=== PATIENT | female | born 1965 | race Caucasian/White ===

== ENCOUNTER 2017-04-17 16:23 | Outpatient (CLI) | payer MEDICARE, MEDICAID ==
--- NOTE | 2017-04-17 17:21 | RAD ---
THREE VIEWS LEFT SHOULDER: Date: 04-17-17 History: Left rotator cuff disorder, pain. FINDINGS: Post-operative hardware overlies the lower cervical spine and the left humeral head. There is mild mirta int space narrowing and osteophyte formation involving the left AC joint. No widening of the left AC or CC interspace. No displaced fracture or dislocation. IMPRESSION: Post-operative and degenerative changes as above. POS: [facility]
== END 2017-04-17 16:24 | disposition home or self-care (01) ==
LOC: RAD 16:23
PROVIDERS: ATTEND Specialist
DX: M75.102 Unspecified rotator cuff tear or rupture of left shoulder, not specified as traumatic (principal); M19.012 Primary osteoarthritis, left shoulder; Z98.890 Other specified postprocedural states

== ENCOUNTER 2018-03-13 06:50 | Day surgery (SDC) | payer MEDICARE, MEDICAID ==
[2018-03-12 12:53] VITALS: BMI 22.6
[2018-03-13] MEDS ORDERED: Iopamidol-M 200 41% 20 ML VIAL ONE (10:40)
--- NOTE | 2018-03-13 10:42 | RAD ---
LUMBAR MYELOGRAM: Date: 03/13/18 HISTORY: Previous lumbar fusion. Lumbar radiculopathy. COMPARISON: 11/26/15. EXPOSURE: 0.5 minutes. 235.5 mGy*M^2. 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 Redemonstratio n of bilateral transpedicular screws at L4, L5, and S1. There is no perihardware lucency. Hypertrophi c changes of the posterior elements at L3-L4, L4-L5, and L5-S1. No spondylolisthesis or spondylolysis . Successful lumbar puncture for intrathecal contrast administration. A total of 10 mL of Isovue-M 200 contrast was administered intrathecally. No immediate or post procedure complications. TECHNIQUE: Consent obtained to perform a lumbar puncture for intrathecal contrast administration. The patient's back was evaluated. The L2-L3 level was deemed appropriate. Skin was prepped and draped in the steril e fashion. 1% lidocaine, buffered with sodium bicarbonate, was used for local anesthesia. Under fluor oscopic guidance, a 22 gauge spinal needle was advanced into the CSF space. There was prompt flow of clear CSF into the hub of the needle. Via a short tubing catheter, a total of 10 mL Isovue-M 200 cont rast was administered intrathecally. The patient tolerated the procedure well. There were no immediat e or postprocedure complications. IMPRESSION: Successful lumbar myelogram. POS: [facility]
--- NOTE | 2018-03-13 10:44 | CT ---
POST MYELOGRAM LUMBAR SPINE CT: HISTORY: Lumbar radiculopathy. COMPARISON: 05/21/2014 TECHNIQUE: Post myelogram lumbar spine CT is performed in the axial plane. Reformatted images are submitted for interpretation. FINDINGS: There are bilateral transpedicular screws at L4, L5, and S1. No perihardware lucency. Posterior keren ment bone graft material, as well as hypertrophic change of the posterior elements is noted. There i s no evidence of fracture. No spondylolisthesis. No spondylolysis. Symmetric attenuation of the psoas muscles. The visualized alimentary canal and solid organs are unr emarkable. Nonobstructing, 3 mm calculus in the left renal pelvis. The conus medullaris terminates at the mid L1 level. T11-T12/T12-L1: No significant central canal stenosis. The neural foramina are patent. L1-L2: No significant posterior disk abnormality. No significant central canal stenosis. The neura l foramina are patent. L2-L3: Generalized disk bulge, ligamentum flavum thickening, and facet hypertrophy result in mild ce ntral canal stenosis. Mild bilateral neural foraminal narrowing. L3-L4: There continues to be a concentric disk bulge with disk material along the left and right lat eral aspects of the disk space. There is ligamentum flavum thickening and facet hypertrophy. There is resultant mild to moderate central canal stenosis. There is moderate right and mild to moderate l eft foraminal narrowing. Disk material narrows the aforementioned neural foramina. There is also ev idence of right post foraminal disk material, which abuts the right L3 nerve root. L4-L5: Posterior laminectomy defect. No significant central canal stenosis. Bilaterally, the neura l foramina are patent. L5-S1: No significant central canal stenosis or neural foraminal narrowing. IMPRESSION: 1. Redemonstration of degenerative changes of the lumbar spine, as above. 2. There is evidence of narrowing of both neural foramina at L3-L4, secondary to disk material. 3. There is disk material abutting the post foraminal right L3 nerve root, similar to the previous e xamination. 4. There is mild to moderate central canal stenosis at L3-L4. POS: [facility]
== END 2018-03-13 09:35 | disposition home or self-care (01) ==
LOC: RAD 06:50
PROVIDERS: ATTEND Specialist
PROC: B01B1ZZ Fluoroscopy of Spinal Cord using Low Osmolar Contrast (ICD-10-PCS; principal; 2018-03-13)
DX: M51.16 Intervertebral disc disorders with radiculopathy, lumbar region (principal); M48.061 Spinal stenosis, lumbar region without neurogenic claudication; F32.9 Major depressive disorder, single episode, unspecified; G43.909 Migraine, unspecified, not intractable, without status migrainosus; M96.1 Postlaminectomy syndrome, not elsewhere classified; F17.200 Nicotine dependence, unspecified, uncomplicated; Z88.0 Allergy status to penicillin; Z88.1 Allergy status to other antibiotic agents; Z88.2 Allergy status to sulfonamides; Z88.5 Allergy status to narcotic agent; Z88.8 Allergy status to other drugs, medicaments and biological substances; Z91.040 Latex allergy status; Z98.1 Arthrodesis status; Z98.890 Other specified postprocedural states
CPT/HCPCS: 62304; 72131

== ENCOUNTER 2019-01-10 10:02 | Outpatient (CLI) | payer MEDICARE, MEDICAID ==
--- NOTE | 2019-01-10 10:38 | RAD ---
4 views of lumbar spine: 01/10/2019 COMPARISON: 02/10/2014 HISTORY: Postlaminectomy syndrome FINDINGS: Bilateral pedicle screws are present at the L4, L5, and S1 level with vertically oriented i nterlocking rods. The neutral lateral examination demonstrates no significant anterolisthesis or retrolisthesis. On the flexion imaging there is mild anterolisthesis measuring approximately 5 mm at the L3-4 level. This anterolisthesis is not seen on the extension views. Laminectomy changes are noted at the L4 and L5 le vels. There is atherosclerotic calcification of the abdominal aorta. Bilateral laminectomy changes are present at the L4 level. Mild disc space narrowing at L3-4 with mil d anterior osteophyte formation. IMPRESSION: Postoperative and degenerative change within the lumbar spine as detailed above. There is mild anterolisthesis at L3-4 upon flexion.
== END 2019-01-10 10:03 | disposition home or self-care (01) ==
LOC: RAD 10:02
PROVIDERS: ATTEND Specialist
DX: M96.1 Postlaminectomy syndrome, not elsewhere classified (principal); M47.816 Spondylosis without myelopathy or radiculopathy, lumbar region; M43.16 Spondylolisthesis, lumbar region; Z98.890 Other specified postprocedural states
CPT/HCPCS: 72110

== ENCOUNTER 2019-04-09 14:20 | Outpatient (CLI) | payer MEDICARE, MEDICAID ==
--- NOTE | 2019-04-09 15:33 | RAD ---
EXAM: XR Lumbar Spine 2 Or 3 View PROVIDED CLINICAL HISTORY: Low back pain. History of prior lumbar surgery. COMPARISON: 01/10/2019 FINDINGS: Again noted are bipedicular screws and posterior rods transfixing the L4-5 and L5-S1 levels. Laminect reinaldo defects are present at these levels. No hardware complication is seen. As noted on the prior exam, there is mild grade 1 anterolisthesis of L3 on L4 measuring approximately 4 to 5 mm. The degree of anterolisthesis between flexion and extension does not significantly change. However, the anterolisthesis did correct on extension on the prior exam. The vertebral body heights are within nor mal limits. No additional level of subluxation is identified. Vascular calcifications are again seen in the abdominal aorta. IMPRESSION: 1. Postoperative and degenerative changes of the lumbar spine similar to prior exam. 2. Grade 1 anterolisthesis of L3 on L4.
== END 2019-04-09 14:21 | disposition home or self-care (01) ==
LOC: TBSIIMAG 14:20
PROVIDERS: ATTEND Neurological Surgery
DX: M54.5 Low back pain (principal); M47.816 Spondylosis without myelopathy or radiculopathy, lumbar region; M43.16 Spondylolisthesis, lumbar region; Z98.890 Other specified postprocedural states
CPT/HCPCS: 72100

== ENCOUNTER 2019-04-19 09:51 | Outpatient (CLI) | payer MEDICARE, MEDICAID ==
--- NOTE | 2019-04-19 11:06 | CT ---
CT of thelumbar spine without contrast: 04/19/2019 COMPARISON:03/13/2018 HISTORY:Lumbar radiculopathy, back pain, bilateral lower extremity burning TECHNIQUE: Serial axial CT imaging at3 mm from thelower thoracic spine through lower sacrum without c ontrast. Coronal and sagittal reformatted imaging obtained Findings:Evaluation for central canal and/or neural foraminal stenosis is limited on routine CT exam. Bilateral L4 4, L5, and S1 pedicle screws are present with vertically oriented interlocking rods. No evidence for hardware abnormality. Scattered atherosclerotic calcification of the abdominal aorta noted. No anterolisthesis or retrolisthesis within the lumbar spine. T12-L1: No osseous cause of significant central canal or neural foraminal stenosis. L1-2: Disc space narrowing with anterior osteophyte formation. No osseous cause of significant centra l canal or neural foraminal stenosis. L2-3: Mild hypertrophy of the ligamentum flavum. No osseous cause of significant central canal or alize ral foraminal stenosis. L3-4: Stable disc bulge suspected. Stable mild/moderate bilateral neural foraminal stenosis, right gr eater than left. Stable mild central canal stenosis. L4-5: No osseous cause of significant central canal or neural foraminal stenosis. L5-S1: No osseous cause of significant central canal or neural foraminal stenosis. No worrisome lytic or blastic bone lesion. No acute fracture. Impression:Postoperative and degenerative change within the lumbar spine as detailed above.
== END 2019-04-19 09:52 | disposition home or self-care (01) ==
LOC: TBSIIMAG 09:51
PROVIDERS: ATTEND Neurological Surgery
DX: M47.26 Other spondylosis with radiculopathy, lumbar region (principal); Z98.890 Other specified postprocedural states
CPT/HCPCS: 72131

== ENCOUNTER 2019-06-13 13:30 | Outpatient (CLI) | payer MEDICARE, MEDICAID ==
--- NOTE | 2019-06-13 16:48 | MRI ---
MRI LUMBAR SPINE WITH AND WITHOUT CONTRAST: DATE: 06/13/19 HISTORY: 53-year-old female with low back pain, M54.5. COMPARISON: 02/18/14. TECHNIQUE: Multiple sequences obtained in axial and sagittal planes, pre and post IV injection of gadolinium-bas ed contrast agent: 13 mL Multihance. FINDINGS: For the purposes of this report, it will be assumed that there are 5 lumbar-type vertebrae. The vert ebral body heights are maintained. Whereas previously there were bilateral pedicle screws at L4 and L5, there are currently bilateral pe dicle screws at L4, L5, and S1. There is mild bone marrow edema involving the bilateral pedicles and posterior elements at L3, right greater than left. There is postsurgical enhancement of posterior perivertebral spaces. The findings by individual levels are as follows: T12-L1: Minimal disc bulge, but otherwise normal. L1-L2: Minimal disc bulge, but otherwise normal. Conus medullaris terminates at this level. L2-L3: Disc bulge is slightly larger, still mild. Minimal retrolisthesis of L2 on L3, new. No high gr amber disc space narrowing. New finding of mild bilateral neural foraminal stenosis. The disc bulge ind ents the ventral aspect of the thecal sac. No central spinal canal stenosis or high grade thecal sac stenosis. L3-L4: There is a new approximately 1.2 x 1 x 1 cm posterior midline cystic mass occupying 75% or or more of the cross-sectional area and AP dimension of the spinal canal, severely anteriorly displacing and compressing the cauda equina nerve roots. This posterior epidural cystic mass has a fluid level: the nondependent portion follows CSF signal, suggestive of serous fluid. The dependent portion is h ypointense on both T1W and T2W images (blood or calcifications?). It exhibits rim enhancement. Small focal short linear band of enhancement is seen within the cyst. Interval worsening of bilateral facet DJD. Bilateral facet joint effusions present. Interval worsening of now moderate ligamentum flavum t hickening. Whereas previously there was slight retrolisthesis of L3 on L4, there is now a new slight anterolisthesis of L3 on L4. New mild disc space narrowing. Increase in size of diffuse moderate disc bulge. All of these factors, but especially the posterior epidural cyst, causes severe central spina l canal stenosis. New finding of moderate right neural foraminal stenosis and mild to moderate left n eural foraminal stenosis. L4-L5: Mild disc space narrowing. Generous caliber spinal canal and thecal sac. No neural foraminal s tenosis. L5-S1: Disc space maintained. Generous caliber spinal canal and thecal sac. No neural foraminal steno sis. IMPRESSION: 1. New severe central spinal canal stenosis with compression of cauda equina at L3-4, due to com bination of factors, most importantly a moderately large midline posterior extradural (presumably syn ovial) cyst, and also contributed by worsening of posterior element degenerative hypertrophy, new gra de I spondylolisthesis, and worsening of diffuse disc bulge. 2. Bilateral pedicle screws at L4, L5 and S1. 3. No significant central spinal canal stenosis at any other level. JATINDER Quintana POS: [facility]
== END 2019-06-13 13:31 | disposition home or self-care (01) ==
LOC: BICMRI 13:30
PROVIDERS: ATTEND Neurological Surgery
DX: M54.5 Low back pain (principal); M48.061 Spinal stenosis, lumbar region without neurogenic claudication; G83.4 Cauda equina syndrome; M43.16 Spondylolisthesis, lumbar region; M51.26 Other intervertebral disc displacement, lumbar region; M89.38 Hypertrophy of bone, other site
CPT/HCPCS: 72158

== ENCOUNTER 2019-07-26 06:25 | Outpatient (CLI) | payer MEDICARE, MEDICAID, OTHER ==
[2019-07-26 17:51] LABS: SARS-CoV-2 MS2 Positive; SARS-CoV-2 N Gene Negative; SARS-CoV-2 S Gene Negative; SARS-CoV-2 orf1ab Negative
== END 2019-07-26 06:26 | disposition home or self-care (01) ==
LOC: LABBT 06:25
PROVIDERS: ATTEND Neurological Surgery
DX: Z01.812 Encounter for preprocedural laboratory examination (principal); Z11.59 Encounter for screening for other viral diseases; M54.16 Radiculopathy, lumbar region; M71.30 Other bursal cyst, unspecified site
CPT/HCPCS: 87635; U0003

== ENCOUNTER 2019-07-29 07:32 | Inpatient (IN) | payer MEDICARE, MEDICAID, OTHER ==
[2019-07-26 09:21] VITALS: BMI 23.7
--- NOTE | 2019-07-29 07:44 | HP ---
HISTORY OF PRESENT ILLNESS: Ms. Wray is a 54-year-old woman, known to us for prior lumbar decompression and diskectomy not even one year ago now, who returns with ever increasing severe low back pain and symptoms of neurogenic claudication. Repeat MRI reveals severe central canal stenosis above the level of her fusion at L4 secondary to slight retrolisthesis and new development of synovial cyst within the spinal canal. Flexion-extension x-rays also reveal some likely instability in the lumbar spine. She hopes to treat this surgically and urgently if possible. PAST MEDICAL HISTORY: Migraines, depression, nausea, and lumbar degenerative disease. CURRENT MEDICATIONS: Clonazepam, , and [place]. ALLERGIES: PENICILLIN, CODEINE, , DEMEROL, NEOSPORIN, ADHESIVES, AND SULFA DRUGS. PHYSICAL EXAMINATION: The patient is alert and oriented x3. Gait is severely antalgic and slowed. Lower extremity motor exam is normal. ASSESSMENT: Spinal stenosis and lumbar synovial cyst. PLAN: Dr. Healy met with the patient, reviewed imaging, and advocated for L3-L4 synovial cyst resection and extension of fusion to L3. He explained to the patient risks, benefits, and alternatives to the procedure. The patient expressed understanding and elected to move forward with surgery as discussed. I do believe the patient is mentally competent and capable of making medical decisions for herself. We will move forward with surgery as planned. Job ID: [id number]
[2019-07-29] MEDS ORDERED: Clindamycin/D5W 900 mg/50 ml Premix Bag ONE (09:03)
[2019-07-29] MEDS ORDERED: Scopolamine 1.5 mg/72 hour Patch ONE (09:03)
[2019-07-29] MEDS ORDERED: Levofloxacin 500 mg/D5W 100 ml Premix Bag ONE (09:03)
[2019-07-29] MEDS ORDERED: Midazolam HCl 2 mg/2 ml Vial ONE ×2 (09:03→10:24)
[2019-07-29] MEDS ORDERED: EPINEPHrine 1 MG/ML AMP ONE (10:00)
[2019-07-29] MEDS ORDERED: Bupivacaine PF 0.5% 30 ML VIAL ONE (10:00)
[2019-07-29] MEDS ORDERED: Fentanyl 100 MCG/2 ML VIAL ONE ×2 (11:06→15:21)
[2019-07-29] MEDS ORDERED: Famotidine/PF 20 mg/2ml Vial ONE (11:17)
[2019-07-29] MEDS ORDERED: EPHEDRINE 25 MG/5 ML SYRINGE ONE (12:17)
[2019-07-29] MEDS ORDERED: Glycopyrrolate 0.2 MG/ML 5 ML SYRINGE ONE (12:17)
[2019-07-29] MEDS ORDERED: Ondansetron PF 4 MG/2 ML Vial ONE (12:17)
[2019-07-29] MEDS ORDERED: Metoclopramide HCl 10 MG/2 ML VIAL ONE (12:17)
[2019-07-29] MEDS ORDERED: Lidocaine 1% PF 5 ML VIAL ONE (12:17)
[2019-07-29] MEDS ORDERED: Rocuronium Bromide 10 MG/ML (10ML VIAL) ONE (12:17)
[2019-07-29] MEDS ORDERED: Dexamethasone 20 MG/5 ML VIAL ONE (12:17)
[2019-07-29] MEDS ORDERED: PROPOFOL 200 MG/20 ML VIAL ONE (12:17)
[2019-07-29] MEDS ORDERED: PHENYLEPHRINE-NS 100 MCG/ML 10 ML SYRINGE ONE (12:17)
[2019-07-29] MEDS ORDERED: HYDROmorphone 2 MG/ML VIAL ONE (14:49)
[2019-07-29] MEDS ORDERED: Naloxone HCl 0.4 mg/ml Vial IV PRN (15:17)
[2019-07-29] MEDS ORDERED: Zolpidem Tartrate 5 MG TAB PO PRN (15:17)
[2019-07-29] MEDS ORDERED: Ondansetron PF 4 MG/2 ML Vial IVP PRN (15:17)
[2019-07-29] MEDS ORDERED: fentaNYL Citrate/PF 2,000 MCG in Sodium Chloride 0.9% 60 ML IV PRN (15:17)
[2019-07-29] MEDS ORDERED: Promethazine HCl 25 MG/ML VIAL IM PRN (15:17)
[2019-07-29] MEDS ORDERED: Communication Order-Pharmacy FS SCH (15:30)
[2019-07-29] MEDS ORDERED: HYDROcodone/Acetaminophen 10/325 mg Tablet PO PRN ×2 (17:10)
[2019-07-29] MEDS ORDERED: Morphine 2 MG/ML SYRINGE SLOW IVP PRN (17:10)
[2019-07-29] MEDS ORDERED: Morphine 4 MG/ML VIAL SLOW IVP PRN (17:10)
[2019-07-29] MEDS ORDERED: Acetaminophen 650 MG Suppository PR PRN (17:10)
[2019-07-29] MEDS ORDERED: diphenhydrAMINE 25 MG CAP PO PRN (17:10)
[2019-07-29] MEDS ORDERED: Bisacodyl 10 MG SUPP PR PRN (17:10)
[2019-07-29] MEDS ORDERED: diphenhydrAMINE 50 MG/ML VIAL IVP PRN (17:10)
[2019-07-29] MEDS ORDERED: Milk Of Magnesia 30 ML UDCUP PO PRN (17:10)
[2019-07-29] MEDS ORDERED: Acetaminophen 325 MG TAB PO PRN (17:10)
[2019-07-29] MEDS ORDERED: Ondansetron PF 4 MG/2 ML Vial IM PRN (17:12)
[2019-07-29] MEDS: Sodium Chloride 0.9% 1,000 ML IV SCH (19:00)
--- NOTE | 2019-07-29 19:37 | CT ---
CT ABDOMEN AND PELVIS NONCONTRAST: History: Right flank pain. Comparison: 07-24-11 FINDINGS: Each renal collecting system, ureter, and urinary bladder are decompressed. There is a 0.4 cm calculu s within a nondilated aleah at the midportion of the left kidney. No stones on the right. Atelectasis is present at the lung bases, likely related to recent surgery. Calcifications throughout the arterial structures. Lack of contrast limits evaluation of the soft tissues. No evidence of bowel obstruction. Appendix is not inflamed. Mild diffuse circumferential wall thickening of the colon with low density. No signifi cant stranding in the adjacent fat. Calcified granulomata of the spleen are consistent with healed gr anulomatous disease. Post-operative and prominent degenerative changes throughout the lumbar spine. IMPRESSION: 1. Nonobstructing 4 mm left renal calculus. 2. No evidence of bowel obstruction. 3. Dependent atelectasis at the posterior lung bases. 4. No inflammatory process is evident. POS: [facility]
[2019-07-30] MEDS: Sodium Chloride 0.9% 1,000 ML IV SCH ×2 (01:41→20:40)
[2019-07-30] MEDS: Clindamycin/D5W 900 MG in Premix Bag 1 BAG IVPB SCH ×2 (01:42→09:20)
[2019-07-30] MEDS: tiZANidine HCl 4 MG TAB PO PRN ×2 (09:14→19:50)
[2019-07-30] MEDS ORDERED: Acetaminophen 500 MG TAB PO SCH (10:00)
[2019-07-30] MEDS: clonazePAM 0.5 MG TAB PO PRN ×2 (10:40→16:50)
--- NOTE | 2019-07-30 13:24 | PRG ---
DATE OF SERVICE: 07/30/2019 Ms. Wray is now on the 1st postoperative day after lumbar fusion revision. She is having considerable pain and [employer] was started yesterday. She is yet to get out of the bed and I have encouraged her to do so today. We will put in orders for physical therapy and occupational therapy evaluations and for assisted ambulation throughout the day. I also discussed with her the possibility of rehab and discussion. The patient states she is motivated just to go home as she does have home health services established. We will see how the day goes today and in the morning tomorrow. She does have a walker at home as needed. We will continue to follow for now. Job ID: [id number]
[2019-07-30] MEDS: HYDROcodone/Acetaminophen 10/325 mg Tablet PO PRN ×2 (14:49→22:36)
[2019-07-31] MEDS: tiZANidine HCl 4 MG TAB PO PRN ×3 (01:33→16:27)
[2019-07-31] MEDS: clonazePAM 0.5 MG TAB PO PRN ×3 (01:33→16:27)
[2019-07-31] MEDS: HYDROcodone/Acetaminophen 10/325 mg Tablet PO PRN ×4 (04:50→18:08)
[2019-07-31] MEDS ORDERED: Magnesium Citrate 300 ML BOT PO SCH (08:30)
[2019-07-31] MEDS: Sodium Chloride 0.9% 1,000 ML IV SCH (08:42)
[2019-07-31] MEDS ORDERED: HYDROcodone/Acetaminophen 10/325 mg Tablet PO SCH (13:00)
[2019-07-31 15:51] VITALS: BP 96/64; TEMP 98.3
--- NOTE | 2019-08-01 14:37 | OP ---
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 DIAGNOSIS: Adjacent segment degenerative disk disease, synovial cyst, lumbar stenosis and lumbar radiculopathy. PROCEDURES PERFORMED: Reoperation resection of synovial cyst at L3-L4, extension of fusion to L3, placement of posterolateral instrumented hardware at L3, exploration of fusion from L4 through S1, removal of hardware from L4 through S1, placement of allograft, and placement of autograft. ANESTHESIA: General. DESCRIPTION OF PROCEDURE: The patient was brought into the operating room and placed under general anesthesia. She was flipped from the supine to prone position on the operating room table. Her old linear incision was identified and prepped and draped. Following an appropriate preoperative pause, the incision was created. The soft tissues were swept away from midline. The patient's prior hardware construct was identified and all the set screws were removed on both sides spanning L4 through S1. The franchesca connecting the three screws on each side was then removed. We then redirected our attention to the L3-L4 interspace, where laminectomy defect was identified. The laminectomy was extended until cerebral cyst was identified, which was decompressed with egress of fluid. Some of the cyst wall was removed as were the medial facet joints at that level. After decompressing that segment, pedicle screws were placed in L3 with the aid of C-arm fluoroscopy and an intraoperative 3D CT scan was performed to confirm appropriate placement of hardware. The fusion construct from L4 through S1 was explored and the pedicle screws at L5 and S1 bilaterally were removed as there was a solid fusion present. Two rods were then placed spanning L3-L4, which ir[place] the new fuse level. Set screws were then placed and final tightened. Allograft and autograft material were then placed within the lateral confines of the instrumentation construct. The wound was irrigated. Hemostasis was maintained throughout. The wound was then closed in anatomic layers and a pressure dressing was applied. There were no known procedural complications. Job ID: [id number]
== END 2019-07-31 18:50 | disposition home or self-care (01) | DRG 460 ==
LOC: SDC 07:32 → SURG A 18:15 → SDC 07-31 18:00 → SURG A 07-31 18:00
PROVIDERS: ADMIT Neurological Surgery; ATTEND Neurological Surgery
PROC: 0SG0071 Fusion of Lumbar Vertebral Joint with Autologous Tissue Substitute, Posterior Approach, Posterior Column, Open Approach (ICD-10-PCS; principal; 2019-07-31)
PROC: 0SG3071 Fusion of Lumbosacral Joint with Autologous Tissue Substitute, Posterior Approach, Posterior Column, Open Approach (ICD-10-PCS; 2019-07-31)
PROC: 01NB0ZZ Release Lumbar Nerve, Open Approach (ICD-10-PCS; 2019-07-31)
PROC: 0SP00JZ Removal of Synthetic Substitute from Lumbar Vertebral Joint, Open Approach (ICD-10-PCS; 2019-07-31)
DX: M48.062 Spinal stenosis, lumbar region with neurogenic claudication (principal); M71.38 Other bursal cyst, other site; Z11.59 Encounter for screening for other viral diseases; M47.816 Spondylosis without myelopathy or radiculopathy, lumbar region; G43.909 Migraine, unspecified, not intractable, without status migrainosus; F32.9 Major depressive disorder, single episode, unspecified; N20.0 Calculus of kidney; Z79.899 Other long term (current) drug therapy; Z88.0 Allergy status to penicillin; Z88.1 Allergy status to other antibiotic agents; Z88.2 Allergy status to sulfonamides; Z88.5 Allergy status to narcotic agent; Z91.040 Latex allergy status; Z91.048 Other nonmedicinal substance allergy status; Z98.890 Other specified postprocedural states
CPT/HCPCS: 74176; 76000; C1768; J0171; J1100; J1170; J1956; J2001; J2250; J2405; J2704; J2765; J3010; J3490; S0020; S0028

== ENCOUNTER 2019-11-29 13:51 | Outpatient (CLI) | payer MEDICARE, MEDICAID ==
--- NOTE | 2019-11-29 14:56 | MRI ---
Exam: MRI cervical spine without contrast HISTORY: Cervical radiculopathy. Neck pain since 2007. Patient has lost feeling in the left arm the l ast 2-3 weeks.. COMPARISON: 12/31/2009, 02/10/2011 FINDINGS: Redemonstration of anterior fusion from C5 through C7. Associated metallic susceptibly artifact. Sta ble straightening of cervical lordosis. Stable T1 marrow signal intensity of the cervical vertebra. Cervical spine vertebral body heights are maintained. There is no fracture. No significant STIR hyper intensity to suggest ligamentous injury or vertebral body edema Visualized brain parenchyma, cervicomedullary junction, cervical cord and the upper thoracic cord hav e a normal size and signal intensity C2-C3: Adequate disc hydration. No posterior disc abnormality. No significant central canal stenosis. Patent bilateral neural foramina C3-C4: Adequate disc hydration. No posterior disc abnormality. No significant central canal stenosis. Patent bilateral neural foramina C4-C5: Mild loss of disc space height. Broad-based disc osteophyte complex. Mild central canal stenos is. Mild right neural foraminal narrowing due to uncovertebral hypertrophy. Patent left neural foramen C5-C6: Disc prosthesis. Broad-based osteophyte ridge without significant central canal stenosis. Mild bilateral neural foraminal narrowing due to uncovertebral hypertrophy C6-C7: Disc prosthesis. Broad-based osteophyte ridge. Mild central canal stenosis. Mild bilateral alize ral foraminal narrowing due to uncovertebral hypertrophy C7-T1: No significant central canal stenosis or significant neural foraminal narrowing. IMPRESSION: 1. Cervical fusion from C5 through C7. 2. Central canal stenosis and neural foraminal narrowing as detailed above Transcribed Date/Time: 11/29/2019 3:33 PM
== END 2019-11-29 13:52 | disposition home or self-care (01) ==
LOC: BICMRI 13:51
PROVIDERS: ATTEND Specialist
DX: M54.12 Radiculopathy, cervical region (principal); M96.1 Postlaminectomy syndrome, not elsewhere classified; M48.02 Spinal stenosis, cervical region; Z98.1 Arthrodesis status
CPT/HCPCS: 72141

== ENCOUNTER 2019-12-19 08:58 | Outpatient (CLI) | payer MEDICARE, MEDICAID ==
--- NOTE | 2019-12-19 10:39 | CT ---
NONCONTRAST HEAD CT CT ANGIOGRAM OF THE HEAD CT ANGIOGRAM OF THE NECK: HISTORY: Numbness. Tingling. COMPARISON: None. CORRELATION: MR angiogram of the lumbee of [place] 01/02/2010, carotid ultrasound 01/03/2010. FINDINGS: NONCONTRAST HEAD CT: No parenchymal hemorrhage. No extraaxial hematoma. No midline shift. Basilar cisterns are patent. Age-appropriate brain volume. Cortical mclaughlin-white matter differentiation. No hydrocephalus. Adequate aeration of the mastoid air cells. Right maxillary sinus mucous retention cyst. Intact cheryl varium. POST CONTRAST IMAGING: There is no pathologic enhancement of the brain parenchyma. SOFT TISSUE NECK CT: There is increased fullness at the level of the adenoid tonsils which may, in part, be due to motion degradation. However, mucosal-based pathology cannot be excluded. Direct visualization is recommend ed. No obvious masses in the anterior oral cavity. Midline fatty raphae of the tongue is preserved. Epiglottis has a normal caliber. The supraglottic, glottic, and subglottic larynx do not demonstrate any acute abnormality. Effacement of the left piriform sinus likely due to benign apposition of the mucosa. Heterogenous-appearing thyroid gland. Symmetric attenuation of the parotid and submandibular glands. No evidence of lymphadenopathy by size criteria. Visualized soft tissue neck structures are grossly unremarkable. There are patchy ground-glass opacities involving the visualized lung apices. Correlate for possible infiltrate or edema. Cervical spine vertebral heights are maintained. There is no fracture. Cervical fusion at C5, C6, a nd C7 without perihardware lucency. C5-C6 and C6-C7 disk prosthesis. CT ANGIOGRAM: There is atherosclerosis of the visualized aorta. There is a common origin of the innominate artery and the left common carotid artery. Right carotid: There is appropriate enhancement and luminal diameter of the innominate artery, commo n carotid artery, carotid bifurcation, and internal carotid artery. No significant stenosis based up on NASCET criteria. Left carotid: There is appropriate enhancement and luminal diameter of the origin of the carotid art alondra, common carotid artery, carotid bifurcation, and internal carotid artery. There is mild atherosc lerosis involving the left carotid bifurcation and proximal internal carotid artery. No significant stenosis based upon NASCET criteria. Bilateral subclavian arteries and cervical vertebral bodies are patent throughout their courses in th e neck. The right vertebral artery is larger than the contralateral side. CT ANGIOGRAM OF THE HEAD: The intracranial internal carotid arteries have appropriate enhancement and luminal diameter. There is atherosclerosis involving both cavernous and pericolonic segments. ANTERIOR CIRCULATION: Appropriate enhancement and luminal diameter of the A1 segment, M1 segment, A2 segment, and proximal MCA branches. Intracranial vertebral arteries have appropriate enhancement and luminal diameter. Bilateral PICA ar yana origins have appropriate enhancement and luminal diameter. Both vertebral arteries supply a nor mal-appearing basilar artery and P1 segment. IMPRESSION: 1. No significant stenosis at the level of the lumbee of [place]. 2. No significant stenosis based upon NASCET criteria. 3. Heterogeneous thyroid gland. Nonemergent thyroid ultrasound is recommended. 4. Fullness of the nasopharynx. Direct visualization with ENT consultation is recommended. 5. Ground-glass opacities in the visualized lung apices. Correlate for edema or infiltrate. CODE T
[2019-12-19] MEDS ORDERED: Iopamidol 370 76% 100 ML VIAL ONE (15:02)
== END 2019-12-19 08:59 | disposition home or self-care (01) ==
LOC: CT 08:58
PROVIDERS: ATTEND Neurological Surgery
DX: G56.20 Lesion of ulnar nerve, unspecified upper limb (principal); R20.2 Paresthesia of skin; R55 Syncope and collapse; R91.8 Other nonspecific abnormal finding of lung field; J34.89 Other specified disorders of nose and nasal sinuses
CPT/HCPCS: 70496; 70498; Q9967

== ENCOUNTER 2020-10-26 14:48 | Emergency (ER) | payer MEDICARE, MEDICAID ==
[2020-10-26] MEDS ORDERED: Famotidine 20 MG TAB ONE (15:19)
[2020-10-26] MEDS ORDERED: Dexamethasone 4 MG TAB ONE (15:19)
== END 2020-10-26 16:20 | disposition home or self-care (01) ==
LOC: ERS 14:48
DX: T78.40XA Allergy, unspecified, initial encounter (principal); F17.210 Nicotine dependence, cigarettes, uncomplicated
CPT/HCPCS: 99283; J8540

== ENCOUNTER 2021-05-14 07:32 | Outpatient (CLI) | payer MEDICARE, MEDICAID | END 2021-05-14 07:33 | disposition home or self-care (01) | LOC: BICMRI 07:32 | PROVIDERS: ATTEND Specialist | DX: M51.16 Intervertebral disc disorders with radiculopathy, lumbar region (principal); M48.061 Spinal stenosis, lumbar region without neurogenic claudication; Z98.890 Other specified postprocedural states | CPT/HCPCS: 72158 ==

== ENCOUNTER 2021-07-20 10:04 | Outpatient (CLI) | payer MEDICARE, MEDICAID | END 2021-07-20 10:05 | disposition home or self-care (01) | LOC: BICMAMMO 10:04 | PROVIDERS: ATTEND Neurological Surgery | DX: Z13.820 Encounter for screening for osteoporosis (principal); M47.816 Spondylosis without myelopathy or radiculopathy, lumbar region; M85.80 Other specified disorders of bone density and structure, unspecified site | CPT/HCPCS: 77080 ==

== ENCOUNTER 2022-01-10 13:13 | Emergency (ER) | payer OTHER ==
[2022-01-10] MEDS ORDERED: Morphine 4 MG/ML VIAL ONE (13:36)
[2022-01-10] MEDS ORDERED: Ondansetron PF 4 MG/2 ML Vial ONE (13:36)
== END 2022-01-10 15:21 | disposition home or self-care (01) ==
LOC: ERS 13:13
DX: S16.1XXA Strain of muscle, fascia and tendon at neck level, initial encounter (principal); M25.512 Pain in left shoulder; V89.2XXA Person injured in unspecified motor-vehicle accident, traffic, initial encounter; Z79.899 Other long term (current) drug therapy
CPT/HCPCS: 70450; 72125; 72128; 96374; 96375; J2270; J2405

== ENCOUNTER 2022-01-13 07:46 | Outpatient (CLI) | payer OTHER | END 2022-01-13 07:47 | disposition home or self-care (01) | LOC: MRI 07:46 | PROVIDERS: ATTEND Neurological Surgery | DX: M47.24 Other spondylosis with radiculopathy, thoracic region (principal); M47.26 Other spondylosis with radiculopathy, lumbar region; M47.27 Other spondylosis with radiculopathy, lumbosacral region; Z98.890 Other specified postprocedural states | CPT/HCPCS: 72157; 72158 ==

== ENCOUNTER 2022-02-16 05:58 | Day surgery (SDC) | payer OTHER, MEDICAID ==
[2022-02-15 10:14] VITALS: BMI 23.3
[2022-02-16] MEDS ORDERED: Bupivacaine HCl 0.5%/Epinephrine 1:200,000/PF 30 ml Vial ONE (06:34)
[2022-02-16] MEDS ORDERED: Thrombin 5000 UNITS/5 ML VIAL ONE (06:34)
[2022-02-16] MEDS ORDERED: Lidocaine 1% MPF 2 ML VIAL ONE (07:03)
[2022-02-16] MEDS ORDERED: Clindamycin/D5W 900 mg/50 ml Premix Bag ONE ×2 (07:08→07:44)
[2022-02-16] MEDS ORDERED: Levofloxacin 500 mg/D5W 100 ml Premix Bag ONE ×2 (07:08→07:44)
[2022-02-16] MEDS ORDERED: Fentanyl 250 MCG/5 ML VIAL ONE ×2 (07:13→09:54)
[2022-02-16] MEDS ORDERED: Rocuronium Bromide 10 MG/ML (10ML VIAL) ONE (08:24)
[2022-02-16] MEDS ORDERED: PROPOFOL 200 MG/20 ML VIAL ONE (08:24)
[2022-02-16] MEDS ORDERED: Glycopyrrolate 0.2 MG/ML 5 ML SYRINGE ONE (08:24)
[2022-02-16] MEDS ORDERED: Ondansetron PF 4 MG/2 ML Vial ONE (08:24)
[2022-02-16] MEDS ORDERED: PHENYLEPHRINE-NS 100 MCG/ML 10 ML SYRINGE ONE (08:24)
[2022-02-16] MEDS ORDERED: NEOSTIGMINE 3 MG/3 ML SYR 3 MG/3 ML SYRINGE ONE (08:24)
[2022-02-16] MEDS ORDERED: ePHEDrine 50 MG/ML VIAL ONE (08:24)
[2022-02-16] MEDS ORDERED: Midazolam HCl 2 mg/2 ml Vial ONE (09:54)
[2022-02-16] MEDS ORDERED: Morphine 4 MG/ML VIAL ONE (11:01)
[2022-02-16] MEDS ORDERED: Morphine 2 MG/ML VIAL ONE (11:03)
[2022-02-16] MEDS ORDERED: Oxymetazoline HCl 0.05% (30 ML BOT) ONE (12:57)
[2022-02-16] MEDS ORDERED: Ondansetron ODT 4 MG TAB ONE (14:34)
== END 2022-02-16 15:15 | disposition home or self-care (01) ==
LOC: SDC 05:58
PROVIDERS: ATTEND Neurological Surgery
PROC: 01N10ZZ Release Cervical Nerve, Open Approach (ICD-10-PCS; principal; 2022-02-16)
DX: M48.02 Spinal stenosis, cervical region (principal); M54.12 Radiculopathy, cervical region; M40.202 Unspecified kyphosis, cervical region; G95.9 Disease of spinal cord, unspecified; G89.4 Chronic pain syndrome; M19.90 Unspecified osteoarthritis, unspecified site; F17.210 Nicotine dependence, cigarettes, uncomplicated; J45.909 Unspecified asthma, uncomplicated; F19.11 Other psychoactive substance abuse, in remission; M06.9 Rheumatoid arthritis, unspecified; M54.16 Radiculopathy, lumbar region; Z86.73 Personal history of transient ischemic attack (TIA), and cerebral infarction without residual deficits; Z88.0 Allergy status to penicillin; Z88.1 Allergy status to other antibiotic agents; Z88.2 Allergy status to sulfonamides; Z88.5 Allergy status to narcotic agent; Z91.048 Other nonmedicinal substance allergy status; Z98.1 Arthrodesis status
CPT/HCPCS: 63045; J2270; J1956; J2250; J2405; J2704; J3010; J3490; Q0162

== ENCOUNTER 2022-05-20 09:32 | Outpatient (CLI) | payer OTHER, MEDICAID | END 2022-05-20 09:33 | disposition home or self-care (01) | LOC: TBSIIMAG 09:32 | PROVIDERS: ATTEND Neurological Surgery | DX: M54.12 Radiculopathy, cervical region (principal); M47.12 Other spondylosis with myelopathy, cervical region; Z98.890 Other specified postprocedural states | CPT/HCPCS: 72141 ==

== ENCOUNTER 2022-06-27 12:20 | Outpatient (CLI) | payer OTHER, MEDICAID | END 2022-06-27 12:21 | disposition home or self-care (01) | LOC: BICULT 12:20 | PROVIDERS: ATTEND Neurological Surgery | DX: E04.1 Nontoxic single thyroid nodule (principal) | CPT/HCPCS: 76536 ==

== ENCOUNTER 2022-07-06 12:07 | Outpatient (CLI) | payer OTHER ==
[2022-07-06 14:25] LABS: Hemoglobin 12.4 g/dL (12.0-15.5); Mean Corpuscular HGB CONC 32.7 g/dL (32.0-36.0); Mean Corpuscular Hemoglobin 30.6 pg (27.0-33.0); Mean Corpuscular Volume 93.6 fl (81.6-98.3); Mean Platelet Volume 9.5 fl (7.4-10.4); Platelet Count 312 10x3/uL (150-450); RBC Distribution Width 12.7 % (11.5-14.5); Red Blood Cell (RBC) Count 4.05 10x6/uL (3.90-5.03); White Blood Cell (WBC) Count 8.6 10x3/uL (3.5-10.5)
[2022-07-06 15:17] LABS: Anion Gap 13 mmol/L (10-20); BUN (Urea Nitrogen) 9 mg/dL (9.8-20.1); Calc. Creatinine Clearance 0 mL/min (70-130); Calcium 9.4 mg/dL (7.8-10.44); Carbon Dioxide 23 mmol/L (22-29); Chloride 107 mmol/L (98-107); Estimated GFR 101; Glucose 69 mg/dL (70-105); Potassium 4.4 mmol/L (3.5-5.1); Sodium 139 mmol/L (136-145)
== END 2022-07-06 12:08 | disposition home or self-care (01) ==
LOC: LABBT 12:07
PROVIDERS: ATTEND Neurological Surgery
DX: Z01.818 Encounter for other preprocedural examination (principal); M54.12 Radiculopathy, cervical region
CPT/HCPCS: 80048; 85027; 93005; 93010

== ENCOUNTER 2022-07-11 05:43 | Day surgery (SDC) | payer OTHER ==
[2022-07-06 12:46] VITALS: BMI 23.3
[2022-07-11] MEDS ORDERED: Lidocaine 1% MPF 2 ML VIAL ONE (06:18)
[2022-07-11] MEDS ORDERED: Bupivacaine HCl 0.5%/Epinephrine 1:200,000/PF 30 ml Vial ONE (06:26)
[2022-07-11] MEDS ORDERED: Thrombin 5000 UNITS/5 ML VIAL ONE (06:26)
[2022-07-11] MEDS ORDERED: NEOSTIGMINE 3 MG/3 ML SYR 3 MG/3 ML SYRINGE ONE (06:56)
[2022-07-11] MEDS ORDERED: PHENYLEPHRINE-NS 100 MCG/ML 10 ML SYRINGE ONE (06:56)
[2022-07-11] MEDS ORDERED: Rocuronium Bromide 10 MG/ML (10ML VIAL) ONE (06:56)
[2022-07-11] MEDS ORDERED: ePHEDrine Sulfate 50 MG/10 ML VIAL ONE (06:56)
[2022-07-11] MEDS ORDERED: GLYCOPYRROLATE/PF 0.2 MG/ML VIAL ONE (06:56)
[2022-07-11] MEDS ORDERED: Lidocaine 1% PF 5 ML VIAL ONE (06:56)
[2022-07-11] MEDS ORDERED: PROPOFOL 200 MG/20 ML VIAL ONE (06:56)
[2022-07-11] MEDS ORDERED: Ondansetron PF 4 MG/2 ML Vial ONE (06:56)
[2022-07-11] MEDS ORDERED: Famotidine/PF 20 mg/2ml Vial ONE (06:57)
[2022-07-11] MEDS ORDERED: fentaNYL 50 mcg/mL 1 mL Vial ONE ×5 (06:57→09:51)
[2022-07-11] MEDS ORDERED: Midazolam HCl 2 mg/2 ml Vial ONE (06:57)
[2022-07-11] MEDS ORDERED: Levofloxacin 500 mg/D5W 100 ml Premix Bag ONE (06:59)
[2022-07-11] MEDS ORDERED: Clindamycin/D5W 600 mg/50 ml Premix Bag ONE (06:59)
[2022-07-11] MEDS ORDERED: Dexmedetomidine 200 MCG/2 ML VIAL ONE (07:03)
[2022-07-11] MEDS ORDERED: SUGAMMADEX SODIUM 200 MG/2 ML VIAL ONE (07:03)
[2022-07-11] MEDS ORDERED: HYDROmorphone 0.5 MG/0.5 ML SYRINGE ONE ×2 (10:11→10:22)
[2022-07-11] MEDS ORDERED: HYDROmorphone 2 MG/ML VIAL SLOW IVP PRN (10:45)
== END 2022-07-11 12:39 | disposition home or self-care (01) ==
LOC: SDC 05:43
PROVIDERS: ATTEND Neurological Surgery
PROC: 01N10ZZ Release Cervical Nerve, Open Approach (ICD-10-PCS; principal; 2022-07-11)
DX: M54.12 Radiculopathy, cervical region (principal); M48.02 Spinal stenosis, cervical region; G89.4 Chronic pain syndrome; M19.90 Unspecified osteoarthritis, unspecified site; F17.210 Nicotine dependence, cigarettes, uncomplicated; Z86.73 Personal history of transient ischemic attack (TIA), and cerebral infarction without residual deficits; Z88.1 Allergy status to other antibiotic agents; Z88.2 Allergy status to sulfonamides; Z88.5 Allergy status to narcotic agent; Z88.8 Allergy status to other drugs, medicaments and biological substances; Z91.048 Other nonmedicinal substance allergy status; Z98.1 Arthrodesis status
CPT/HCPCS: 63020; J3010; J1170; J1956; J2250; J2405; J2704; J3490; S0028

== ENCOUNTER 2023-01-11 09:56 | Outpatient (CLI) | payer OTHER, MEDICAID ==
[2023-01-11] MEDS ORDERED: Magnevist 469MG/ML 20 ML VIAL ONE (11:06)
== END 2023-01-11 09:57 | disposition home or self-care (01) ==
LOC: MRI 09:56
PROVIDERS: ATTEND Specialist
DX: M51.16 Intervertebral disc disorders with radiculopathy, lumbar region (principal); M47.26 Other spondylosis with radiculopathy, lumbar region; M48.061 Spinal stenosis, lumbar region without neurogenic claudication; Z98.1 Arthrodesis status
CPT/HCPCS: 72158